=== PATIENT | male | born 1990 | race Asian ===

== ENCOUNTER 2018-01-24 14:03 | Outpatient (CLI) | payer OTHER ==
--- NOTE | 2018-01-24 16:15 | Diagnostic Imaging Report ---
Indication: Abdominal pain, elevated creatinine, abnormal liver function tests Technique: Balderas-scale and duplex images of the upper abdomen were obtained Comparison: Findings: Gallbladder demonstrates sludge. There is an echogenic focus which is nonmobile, nonshadowing, may reflect a polyp. This measures 4 mm in diameter. No gallbladder wall thickening nor pericholecystic fluid. Sonographic Wlof's sign is negative. Common bile duct measures 5 mm in diameter. No intrahepatic biliary ductal dilatation. Liver demonstrates normal echogenicity, no focal abnormality. Portal vein and hepatic veins are patent. Pancreas is obscured by bowel gas. Spleen is unremarkable. Left kidney measures 11.2 cm in length. Right kidney measures 10.9 cm length. Both kidneys demonstrate normal echogenicity. There is no hydronephrosis. Left kidney demonstrates small cysts . Abdominal aorta is partially obscured by bowel gas, visualized portions are non-aneurysmal . Impression: Gallbladder sludge. Echogenic focus in the gallbladder lumen probably reflects a small polyp, although could represent a small wall adherent stone Negative for dilated ducts Incidental finding small left renal cyst Note inability to visualize the pancreas and portions of the abdominal aorta
== END 2018-01-24 16:03 | disposition home or self-care (01) ==
LOC: ULS 14:03
DX: R10.9 Unspecified abdominal pain (principal); R94.5 Abnormal results of liver function studies; N20.0 Calculus of kidney
CPT/HCPCS: 76700